=== PATIENT | female | born 1965 | race African-American/Black ===

== ENCOUNTER → 2018-02-08 | Outpatient (CLI) | payer BC, OTHER | LOC: ULTRA 12:43 | DX: K80.20 Calculus of gallbladder without cholecystitis without obstruction (principal) ==

== ENCOUNTER → 2019-04-16 | Outpatient (CLI) | payer BC, OTHER | LOC: RAD 09:18 | DX: R05 Cough (principal) ==

== ENCOUNTER → 2019-08-14 | Outpatient (CLI) | payer OTHER | LOC: CAT 07:45 | DX: Z13.6 Encounter for screening for cardiovascular disorders (principal); I25.10 Atherosclerotic heart disease of native coronary artery without angina pectoris; E78.00 Pure hypercholesterolemia, unspecified ==

== ENCOUNTER → 2020-06-03 | Outpatient (CLI) | payer BC, OTHER | LOC: LAB 11:12 | PROVIDERS: ATTEND Family Medicine | DX: U07.1 COVID-19 (principal) ==

== ENCOUNTER → 2020-10-20 | Outpatient (CLI) | payer BC, OTHER | LOC: SJCVCIMAG 13:28 | PROVIDERS: ATTEND Internal Medicine Cardiovascular Disease | DX: I35.8 Other nonrheumatic aortic valve disorders (principal); R00.2 Palpitations ==

== ENCOUNTER → 2021-03-03 | Outpatient (CLI) | payer BC, OTHER | LOC: ULTRA 09:30 | PROVIDERS: ATTEND Nurse Practitioner | DX: R10.11 Right upper quadrant pain (principal) ==